=== PATIENT | male | born 1945 | race Caucasian/White ===

== ENCOUNTER 2017-05-08 18:37 | Emergency (ER) | payer OTHER ==
[2017-05-08] MEDS ORDERED: NS 1,000 ML IV ONE (18:42)
--- NOTE | 2017-05-08 18:48 | EDPHY ---
H & P HPI/ROS: HPI CHIEF COMPLAINT: Witness mechanical trip and fall on [employer] HISTORY OF PRESENT ILLNESS: This patient is 71-year-old otherwise healthy he states that he does not have any medical problems does not take any daily medications presents to the emergency room by EMS after he had a witnessed mechanical trip and fall [employer]. A bystander saw him fall. They went away and contacted the police. Subsequently a 2nd bystander found him on the ground they report that he was not moving and appeared to be unresponsive. EMS were called and found him to be confused. Alert and oriented x1. His mentation has improved during transport. Upon arrival here to the emergency room the patient denies any complaints. He denies pain anywhere he is in a cervical collar. He has a hematoma abrasion to the right temporal region. He denies chest pain or shortness of breath. He is unsure exactly what happened. He does not recall the events. No witnessed seizure activity. No biting of tongue bowel bladder incontinence. Patient states he does not take any medications Patient states he has no medical problems. Patient states he is retired Past Medical History: No significant medical history Past Surgical History: No significant surgical history Social History: Denies daily use drugs alcohol tobacco. Retired. Resides in [place]. Family History: Noncontributory ROS REVIEW OF SYSTEMS: A comprehensive 10 point review of systems is otherwise negative aside from elements mentioned in the history of present illness. Exam Constitutional appears well nontoxic no acute distress, triage nursing summary reviewed, vital signs reviewed, awake/alert. Eyes normal conjunctivae and sclera, EOMI, PERRLA. HENT head/neck: Right-sided hematoma with overlying abrasion, otherwise atraumatic exam. No midline cervical spine pain or step-offs. , moist mucus membranes, no epistaxis, neck supple/ no meningismus, no raccoon eyes. Respiratory clear to auscultation bilaterally, normal breath sounds, no respiratory distress, no wheezing. Cardiovascular rate normal, regular rhythm, no murmur, no edema, distal pulses normal. Gastrointestinal soft, non-tender, no rebound, no guarding, normal bowel sounds, no distension, no pulsatile mass. Genitourinary no CVA tenderness. Musculoskeletal no midline vertebral tenderness, full range of motion, no calf swelling, no tenderness of extremities, no meningismus, good pulses, neurovascularly intact. Skin Right temporal region: 2cm lac. Non-gaping. Clean edges. Neurologic awake, alert and oriented x 3, AAOx3, moves all 4 extremities equally, motor intact, sensory intact, CN II-XII intact, normal cerebellar, normal vision, normal speech. Psychiatric normal mood/affect. Heme/Lymph/Immune no lymphadenopathy. Differential Diagnosis: Includes but is not limited to in a particular order syncope, mechanical trip and fall, head injury, closed head injury, intracranial bleed, subdural, epidural, traumatic subarachnoid, cardiac arrhythmia Medical Decision Making: Plan for this patient CT head without contrast CT cervical spine, blood work, EKG, child monitor IV establishment gentle IV hydration re-evaluation. Re-evaluation: EKG interpretation by me on record in [employer] system. Impression time of EKG 1912, sinus rhythm rate of 69 no evidence of cardiac arrhythmia or acute ischemic change appreciated. CT head/C Spine: Negative for acute traumatic injury. No bleed, no fx, C spine DJD. Trabecular pattern seen. Please see full dictation report for details of CT scan The trabecular pattern seen on the cervical spine Dr. Norberto Marley recommends the patient follows up with his primary care doctor for it SPEP then CBC as trabecular Pattern could be seen multiple myeloma. I discussed this with the patient. Patient's tetanus shot will be updated. Patient's right temporal frontal scalp wound will be cleaned and irrigated. I will outpatient go home as he states he fine. He thinks he tripped and fell at times he has poor vision. Denies chest pain or his breath. Denies palpitations. Denies significant lightheadedness or palpitations Patient would like to be discharged CT scan head and neck unremarkable except for the trabecular pattern. Blood work has been reviewed. Return precautions discussed with the patient. 2008: Right temporal region does show a very small laceration. Patient declined sutures. Will place Steri-Strips in place. The right head laceration is been copiously cleaned and irrigated. Steri- Strips applied. Source: Patient, EMS Constitutional: Initial Vital Signs Temperature (C) 37.0 C 05/08/17 18:58 Heart Rate 80 05/08/17 18:58 Respiratory Rate 16 05/08/17 18:58 Blood Pressure 161/95 H 05/08/17 18:58 O2 Sat (%) 96 05/08/17 18:58 O2 Delivery Mode Room Air Allergies/Adverse Reactions: Penicillins Allergy (Verified 05/08/17 18:57) Home Medications: Medication Instructions Recorded NK [No Known Home Meds] 05/08/17 Medical Decision Making - Diagnostics Imaging Results: Imaging Impressions Cervical Spine CT 05/08/17 18:42 Impression: 1. There is no acute intracranial abnormality identified on this unenhanced CT evaluation. 2. Mild right periorbital soft tissue swelling, with a small right lateral frontal scalp hematoma. UNENHANCED CT SCAN OF THE CERVICAL SPINE Technique: A multidetector unenhanced helical CT scan was obtained from the clivus caudally through the upper thoracic spine, with images reformatted at 1.50 mm increments, and are reviewed in soft tissue, bone, and lung windows. Parasagittal and paracoronal reconstructed images are reviewed on the workstation. The DFOV is 13.3 cm. A dose reduction protocol was used. Findings: The cervical vertebral body heights are maintained. The posterior alignment is notable for trace retrolisthesis at C4-C5. There are some tiny osteolucencies at multiple levels. While this theoretically could be related to bone demineralization, the possibility of myelomatous lesions is of concern. Correlation with a serum SPEP and a CBC is recommended. If those exams are unrevealing, cervical spine MR imaging is suggested to better evaluate the bone marrow. There is no acute fracture, or facet malalignment. The interspinous distances are normal. The craniocervical junction is normal. The predental space is degeneratively narrowed, and the atlantoaxial lateral mass alignment is normal. The base and the tip of the dens are normal. There is no paravertebral or epidural hematoma identified. The prevertebral soft tissues are within normal limits. There is some minimal biapical pleural fibrosis. At the C1-C2 level, there is no central canal stenosis. At C2-C3 level, there is minimal disk bulging, with no significant central canal or neural foraminal stenosis. At the C3-C4 level, there is very mild disk bulging, with no significant central canal stenosis. There is very mild left neural foraminal stenosis secondary to osseous proliferative change. There is no right neural foraminal stenosis. At the C4-C5 level, there is the aforementioned trace retrolisthesis. There is advanced degenerative disk space narrowing with a vacuum disk phenomenon. Uncovertebral degenerative spondylosis and facet hypertrophy result in severe bilateral neural foraminal stenosis. There is a mild degree of central canal stenosis. At C5-C6 level, there is moderate degenerative disk space narrowing. Uncovertebral degenerative spondylosis and facet hypertrophy results in moderate left and severe right neural foraminal stenosis. There is a mild central canal stenosis. At the C6-C7 level, there is advanced into space narrowing with a vacuum disk phenomenon. There is mild bilateral facet hypertrophy. There is mild broad- based circumferential disk bulging. There is no significant central canal stenosis, and there is a mild degree of bilateral neural foraminal stenosis. The C7-T1 level is within normal limits. Impression: 1. Multilevel degenerative changes as above-detailed, with no acute cervical osseous abnormality identified. 2. Unusual appearance to the trabecular pattern, with tiny osteophyte lucencies present. While these may reflect bone demineralization, the possibility of myelomatous lesions cannot be excluded. Correlation with an SPEP and serum CBC are suggested and if these tests are negative, consider follow-up cervical spine MR imaging to better assess the bone marrow. Findings and recommendations were discussed with Ian Alcala MD at 19:28, on 05/08/2017. Head CT 05/08/17 18:42 Impression: 1. There is no acute intracranial abnormality identified on this unenhanced CT evaluation. 2. Mild right periorbital soft tissue swelling, with a small right lateral frontal scalp hematoma. UNENHANCED CT SCAN OF THE CERVICAL SPINE Technique: A multidetector unenhanced helical CT scan was obtained from the clivus caudally through the upper thoracic spine, with images reformatted at 1.50 mm increments, and are reviewed in soft tissue, bone, and lung windows. Parasagittal and paracoronal reconstructed images are reviewed on the workstation. The DFOV is 13.3 cm. A dose reduction protocol was used. Findings: The cervical vertebral body heights are maintained. The posterior alignment is notable for trace retrolisthesis at C4-C5. There are some tiny osteolucencies at multiple levels. While this theoretically could be related to bone demineralization, the possibility of myelomatous lesions is of concern. Correlation with a serum SPEP and a CBC is recommended. If those exams are unrevealing, cervical spine MR imaging is suggested to better evaluate the bone marrow. There is no acute fracture, or facet malalignment. The interspinous distances are normal. The craniocervical junction is normal. The predental space is degeneratively narrowed, and the atlantoaxial lateral mass alignment is normal. The base and the tip of the dens are normal. There is no paravertebral or epidural hematoma identified. The prevertebral soft tissues are within normal limits. There is some minimal biapical pleural fibrosis. At the C1-C2 level, there is no central canal stenosis. At C2-C3 level, there is minimal disk bulging, with no significant central canal or neural foraminal stenosis. At the C3-C4 level, there is very mild disk bulging, with no significant central canal stenosis. There is very mild left neural foraminal stenosis secondary to osseous proliferative change. There is no right neural foraminal stenosis. At the C4-C5 level, there is the aforementioned trace retrolisthesis. There is advanced degenerative disk space narrowing with a vacuum disk phenomenon. Uncovertebral degenerative spondylosis and facet hypertrophy result in severe bilateral neural foraminal stenosis. There is a mild degree of central canal stenosis. At C5-C6 level, there is moderate degenerative disk space narrowing. Uncovertebral degenerative spondylosis and facet hypertrophy results in moderate left and severe right neural foraminal stenosis. There is a mild central canal stenosis. At the C6-C7 level, there is advanced into space narrowing with a vacuum disk phenomenon. There is mild bilateral facet hypertrophy. There is mild broad- based circumferential disk bulging. There is no significant central canal stenosis, and there is a mild degree of bilateral neural foraminal stenosis. The C7-T1 level is within normal limits. Impression: 1. Multilevel degenerative changes as above-detailed, with no acute cervical osseous abnormality identified. 2. Unusual appearance to the trabecular pattern, with tiny osteophyte lucencies present. While these may reflect bone demineralization, the possibility of myelomatous lesions cannot be excluded. Correlation with an SPEP and serum CBC are suggested and if these tests are negative, consider follow-up cervical spine MR imaging to better assess the bone marrow. Findings and recommendations were discussed with Ian Alcala MD at 19:28, on 05/08/2017. - Data Points Laboratory Results: Laboratory Results 05/08/17 18:45 05/08/17 18:45 05/08/17 05/08/17 05/08/17 18:45 18:45 18:45 WBC 5.23 10^3/uL 10^3/uL (3.80-9.50) RBC 4.12 10^6/uL L 10^6/uL (4.40-6.38) Hgb 14.1 g/dL g/dL (13.7-17.5) Hct 43.1 % % (40.0-51.0) MCV 104.6 fL H fL (81.5-99.8) MCH 34.2 pg H pg (27.9-34.1) MCHC 32.7 g/dL g/dL (32.4-36.7) RDW 12.6 % % (11.5-15.2) Plt Count 223 10^3/uL 10^3/uL (150-400) MPV 10.9 fL fL (8.7-11.7) Neut % (Auto) 44.6 % % (39.3-74.2) Lymph % (Auto) 40.5 % % (15.0-45.0) [facility] [facility] % (Auto) 13.0 % % (4.5-13.0) Eos % (Auto) 1.1 % % (0.6-7.6) Baso % (Auto) 0.6 % % (0.3-1.7) Nucleat RBC Rel Count 0.0 % % (0.0-0.2) Absolute Neuts (auto) 2.33 10^3/uL 10^3/uL (1.70-6.50) Absolute Lymphs (auto) 2.12 10^3/uL 10^3/uL (1.00-3.00) Absolute Monos (auto) 0.68 10^3/uL 10^3/uL (0.30-0.80) Absolute Eos (auto) 0.06 10^3/uL 10^3/uL (0.03-0.40) Absolute Basos (auto) 0.03 10^3/uL 10^3/uL (0.02-0.10) Absolute Nucleated RBC 0.00 10^3/uL 10^3/uL (0-0.01) Immature Gran % 0.2 % % (0.0-1.1) Immature Gran # 0.01 10^3/uL 10^3/uL (0.00-0.10) PT 12.9 SEC SEC (12.0-15.0) INR 0.95 (0.83-1.16) APTT 29.8 SEC SEC (23.0-38.0) Sodium 143 mEq/L mEq/L (135-145) Potassium 4.1 mEq/L mEq/L (3.5-5.2) Chloride 103 mEq/L mEq/L (97-110) Carbon Dioxide 27 mEq/l mEq/l (22-31) Anion Gap 13 mEq/L mEq/L (8-16) BUN 22 mg/dL mg/dL (7-23) Creatinine 0.9 mg/dL mg/dL (0.7-1.3) Estimated GFR > 60 Glucose 81 mg/dL mg/dL (70-100) Calcium 8.9 mg/dL mg/dL (8.5-10.4) Magnesium 2.2 mg/dL mg/dL (1.6-2.3) Creatine Kinase 657 IU/L H IU/L (0-224) CK-MB (CK-2) Fraction 7.19 ng/mL H ng/mL (0.00-3.19) CK-MB (CK-2) % 1.1 % % (0.0-4.0) Creatine Kinase Interp NEGATIVE (NEGATIVE) Troponin I < 0.012 ng/mL ng/mL (0.000-0.034) Medications Given: Discontinued Medications Diphtheria/Tetanus/Acell Pertussis (Boostrix) 0.5 ml IM .ONCE ONE Stop: 05/08/17 19:43 Last Admin: 05/08/17 20:04 Dose: 0.5 ml Sodium Chloride (Ns) 1,000 mls @ 0 mls/hr IV EDNOW ONE; Wide Open PRN Reason: Protocol Stop: 05/08/17 18:43 Last Admin: 05/08/17 19:09 Dose: 1,000 mls Departure - Departure Disposition: Home, Routine, Self-Care Clinical Impression: Fall Qualifiers: Encounter type: initial encounter Qualified Code(s): W19.XXXA - Unspecified fall, initial encounter Concussion Qualifiers: Encounter type: initial encounter Loss of consciousness presence/duration: without LOC Qualified Code(s): S06.0X0A - Concussion without loss of consciousness, initial encounter Scalp hematoma Qualifiers: Encounter type: initial encounter Qualified Code(s): S00.03XA - Contusion of scalp, initial encounter Facial laceration Qualifiers: Encounter type: initial encounter Qualified Code(s): S01.81XA - Laceration without foreign body of other part of head, initial encounter Condition: Good Instructions: Concussion (ED), Fall Prevention for Older Adults (ED), Head Injury (ED), Hematoma (ED) Additional Instructions: 1. Your CT scan of her cervical neck shows a trabecular pattern. 2. You should have this followed up with primary care doctor. He should have a test called SPEP and a CBC. Sometimes we see this in multiple myeloma. 3. At some point he should have MRI of her cervical spine to look at the marrow of this. Referrals: Patient,NotPresent [Unknown] - As per Instructions Sarah Oconnell MD [[facility] Primary Care Provider] - As per Instructions
[2017-05-08 19:01] VITALS: TEMP 98.6
[2017-05-08 19:05] LABS: PLATELET COUNT 223 10^3/uL (150-400)
[2017-05-08 19:12] LABS: INR 0.95 (0.83-1.16); PROTIME(PATIENT) 12.9 SEC (12.0-15.0)
--- NOTE | 2017-05-08 19:15 | CPEKG ---
Heart Rate: 69 RR Interval: 870 P-R Interval: 112 QRSD Interval: 82 QT Interval: 396 QTC Interval: 425 P [place]: 63 QRS [place]: 13 T Wave [place]: -86 EKG Severity - OTHERWISE NORMAL ECG - EKG Impression: SINUS RHYTHM EKG Impression: LOW VOLTAGE IN FRONTAL LEADS Electronically Signed By: Ian Alcala 08-May-2017 20:06:33
[2017-05-08 19:17] LABS: CREATINE KINASE 657 IU/L (0-224)
[2017-05-08] MEDS ORDERED: TDAP ADULT 0.5 ML INJ (BOOSTRIX) IM ONE (19:42)
[2017-05-08 20:11] VITALS: BP 157/83; PULSE 67; RESP 18; O2SAT 99
== END 2017-05-08 21:19 | disposition home or self-care (01) ==
LOC: EDUNIT#
DX: S06.0X0A Concussion without loss of consciousness, initial encounter (principal); S00.03XA Contusion of scalp, initial encounter; S01.81XA Laceration without foreign body of other part of head, initial encounter; E86.9 Volume depletion, unspecified; Z23 Encounter for immunization; W01.0XXA Fall on same level from slipping, tripping and stumbling without subsequent striking against object, initial encounter; Y92.59 Other trade areas as the place of occurrence of the external cause; Y99.8 Other external cause status; Y93.89 Activity, other specified

== ENCOUNTER 2017-05-19 19:33 | Emergency (ER) | payer OTHER ==
--- NOTE | 2017-05-19 19:28 | EDPHY ---
HPI/HX/ROS/PE/MDM Narrative: CHIEF COMPLAINT: Back pain HPI: This patient is a 71 year old male arriving via EMS fell while walking. Denies striking his head or any LOC. Complains of mild left flank pain. 10/10 while leaning forward, 2/10 standing. Walked 3 blocks to call 911. Vitals stable. He was seen in the ED approximately 10 days ago for a similar fall with negative workup including CTH/Csp. He denies numbness, tingling. He denies injury other than to his flank. REVIEW OF SYSTEMS: Aside from elements discussed in the HPI, a comprehensive 10-point review of systems was reviewed and is negative. PMH: Cataracts. Denies anticoagulant use. SOCIAL HISTORY: Denies alcohol or drug abuse. PHYSICAL EXAM: General:Patient is alert, in no acute distress. ENT: Ecchymosis to right periorbital region. Eyes are normal to inspection. ENT inspection normal. Neck: Normal inspection. Full range of motion. Respiratory:No respiratory distress. Breath sounds normal bilaterally. Cardiovascular: Regular rate and rhythm. Strong peripheral pulses. Normal cap refill. Abdomen:The abdomen is nontender to palpation. There are no peritoneal signs. There are normal bowel sounds. Back: Normal to inspection. No tenderness to palpation. No midline tenderness. No abrasion or ecchymosis. No deformity. Skin: Normal color. No rash. Warm and dry. Extremities: Normal appearance. Full range of motion. Neuro: Oriented x3. Normal motor function. Normal sensory function. ED Course: 19:33 Met EMS at bedside. Plan for chest x-ray. Patient declines pain mediation at this time. 20:[address] Cole, radiologist. X-ray is negative for acute osseous abnormalities. No rib fracture or pneumothorax. Reassessed patient. Plan to discharge home in good condition. MDM: Patient presents after what he terms is a clear mechanical fall. Exam is very reassuring with no signs of trauma whatsoever on exam, and really no tenderness. XR rib series is normal. No midline TTP or neuro deficit. Patient feels comfortable going home - declines pain medication. - Data Points Imaging Results: Imaging Impressions Ribs w/Chest X-Ray 05/19/17 19:43 Impression: A displaced rib fracture or pneumothorax is not identified. Results called and discussed with Russell Stevens MD on 05/19/2017 at 20:28. Imaging: Discussed imaging studies w/ call worker person Radiologist, I viewed and interpreted images myself General Initial Vital Signs: Initial Vital Signs Temperature (C) 36.3 C 05/19/17 19:38 Heart Rate 79 05/19/17 19:38 Respiratory Rate 18 05/19/17 19:38 Blood Pressure 143/80 H 05/19/17 19:38 O2 Sat (%) 97 05/19/17 19:38 O2 Delivery Mode Room Air Allergies/Adverse Reactions: Penicillins Allergy (Verified 05/08/17 18:57) Home Medications: Medication Instructions Recorded NK [No Known Home Meds] 05/08/17 Departure - Departure Disposition: Home, Routine, Self-Care Clinical Impression: Contusion of rib on left side Qualifiers: Encounter type: initial encounter Qualified Code(s): S20.212A - Contusion of left front wall of thorax, initial encounter Condition: Good Instructions: Rib Contusion (ED) Additional Instructions: Follow up with your primary care provider this week. Return to the emergency department for severe pain, fever, shortness of breath, numbness, difficulty walking, change in location or nature of pain or other concerns. Use ibuprofen and Tylenol as directed for pain. Referrals: Karey Mancia MD [Medical Doctor] - As per Instructions Report Scribed for: Russell Stevens Report Scribed by: Zully Ferguson Date of Report: 05/19/17 Time of Report: 19:28 Physician Review and Approval Statement: Portions of this note were transcribed by an ED scribe. I personally performed the history, physical exam, and medical decision making; and confirm the accuracy of the information in the transcribed note.
[2017-05-19 19:40] VITALS: BP 143/80; PULSE 79; RESP 18; TEMP 97.3; O2SAT 97
[2017-05-19] MEDS ORDERED: LIDOCAINE 4%/MENTHOL 1% PATCH TD ONE (20:57)
[2017-05-19] MEDS ORDERED: PATCH REMOVAL 1 EA PATCH TD SCH (21:00)
== END 2017-05-19 21:39 | disposition home or self-care (01) ==
LOC: EDUNIT#
DX: S20.212A Contusion of left front wall of thorax, initial encounter (principal); W18.39XA Other fall on same level, initial encounter; Y99.8 Other external cause status; Y93.01 Activity, walking, marching and hiking

== ENCOUNTER 2018-05-05 12:45 | Emergency (ER) | payer OTHER ==
[2018-05-05 12:55] VITALS: BP 165/90
--- NOTE | 2018-05-05 13:41 | EDPHY ---
H & P Time Seen by Provider: 05/05/18 13:17 HPI/ROS: CHIEF COMPLAINT: "I think I dislocated my rectum HISTORY OF PRESENT ILLNESS: 72-year-old man says he had symptoms just like this 3 months ago that resolved spontaneously. He says he feels like there is "something disconnected" in his rectum. He is usually a "over eater" but has a decreased oral intake for couple of days. He said he felt a fullness in his rectum over the last 2 days, had a normal bowel movement yesterday and today his BM was a little bit "broken" with some diarrhea. No melena and no bleeding. No rectal pain. He does say his abdomen is intermittently "turgid" for the last several decades. Denies bloating or symptoms today. He says he is here for a " peace of mind checkup." REVIEW OF SYSTEMS: Eye: no change in vision ENT: no sore throat Cardiac: no chest pain or syncope Pulmonary: no cough or SOB Abdomen: HPI Musculoskeletal: no back pain Skin: no rash Neuro: no headache Constitutional: no fever : no urinary symptoms A comprehensive 10 point review of systems is otherwise negative aside from elements mentioned in the history of present illness. PAST MEDICAL HISTORY: Hernia and cataract surgery Social history: Nonsmoker General Appearance: Alert and conversant, cooperative. Eyes: No scleral icterus. ENT, Mouth: Normal mucous membranes. Respiratory: Normal respiratory effort, breath sounds equal, lungs are clear to auscultation. Cardiovascular: Regular rate and rhythm. Gastrointestinal: Abdomen is soft and non tender. Normal bowel sounds, not distended. No focal tenderness. Rectal exam and anoscopy shows no stool in the vault, single internal hemorrhoid which is not inflamed or bleeding, no melena, no masses. Normal tone. No perirectal fullness or tenderness. Neurological: Alert, ambulatory. Skin: Warm and dry, no rashes. Musculoskeletal: No peripheral edema. Psychiatric: Not agitated. Emergency Department course/MDM: Patient presents with rectal fullness but has a normal rectal exam. I think it is unlikely that he has perirectal abscess or constipation or rectal mass or gastrointestinal bleeding or prolapse at this time. He is encouraged to follow up with Gastroenterology in the next 2 weeks for evaluation. At this time I think it is unlikely he has an acute emergent medical or surgical process. Patient says he is comfortable being discharged with follow-up as outlined above. Smoking Status: Never smoked Constitutional: Initial Vital Signs Temperature (C) 36.6 C 05/05/18 12:52 Heart Rate 55 L 05/05/18 12:52 Respiratory Rate 16 05/05/18 12:52 Blood Pressure 165/90 H 05/05/18 12:52 O2 Sat (%) 99 05/05/18 12:52 O2 Delivery Mode Room Air Allergies/Adverse Reactions: Penicillins Allergy (Verified 05/05/18 12:52) Home Medications: Medication Instructions Recorded NK [No Known Home Meds] 05/08/17 Departure - Departure Disposition: Home, Routine, Self-Care Clinical Impression: Rectal fullness Condition: Good Instructions: Additional Information Referrals: Pee Mcfarland MD [Medical Doctor] - As per Instructions (Follow-up with Gastroenterology in the next 2 weeks.)
== END 2018-05-05 13:50 | disposition home or self-care (01) ==
DX: R19.8 Other specified symptoms and signs involving the digestive system and abdomen (principal)